=== PATIENT | female | born 1980 | race Caucasian/White ===

== ENCOUNTER 2016-12-29 11:58 | Emergency (ER) | payer OTHER ==
[~2016-12-29] VITALS: Ht 162.6 cm; Wt 65.0 kg
[~2016-12-29 11:58] MED LIST: IBUP800T25 PO
[2016-12-29 12:00] VITALS: Ht 162.6 cm; Wt 65.0 kg
[2016-12-29] MEDS ORDERED: BENZ100C70 PO (12:27)
[2016-12-29] MEDS ORDERED: AZIT250T94 PO (12:27)
[2016-12-29] MEDS ORDERED: LORA-186 PO (12:27)
[2016-12-29] MEDS ORDERED: ALBU8.5H3 INH (12:27)
--- NOTE | 2016-12-29 12:43 | ERD ---
ER Documentation Chief Complaint Date/Time DATE: 12/29/16 TIME: 12:28 Chief Complaint COUGH , RUNNY NOSE , CHILLS HPI This is a 36-year-old female presenting to the emergency department complaining of cough, runny nose and chills for the past 2 weeks. Patient states that she had a lot of phlegm this morning. She denies any current fevers. Denies taking any other medications today ROS All systems reviewed and are negative except as per history of present illness. Medications Home Meds Active Scripts Loratadine* (Claritin*) 10 Mg Tablet, 10 MG PO DAILY, #20 TAB Prov:NICOLE GIBBS PA-C 12/29/16 Benzonatate* (Tessalon Perle*) 100 Mg Capsule, 100 MG PO Q8H Y for COUGH, #20 CAP Prov:NICOLE GIBBS PA-C 12/29/16 Azithromycin* (Zithromax*) 250 Mg Tablet, 250 MG PO .ZPACK DIRECTED, #6 TAB TAKE 500 MG (2 TABS) THE FIRST DAY THEN 250 MG (1 TAB) DAYS 2-5 Prov:NICOLE GIBBS PA-C 12/29/16 Albuterol Sulfate* (Proair HFA*) 8.5 Gm Hfa.aer.ad, 2 PUFF INH Q4H Y for WHEEZING AND SOB, #1 INHALER Prov:NICOLE GIBBS PA-C 12/29/16 Ibuprofen* (Motrin*) 800 Mg Tab, 800 MG PO Q6, #30 TAB Prov:MANOJ LLOYD NP 04/26/15 Allergies Allergies: Coded Allergies: morphine (Verified Allergy, Unknown, 04/26/15) PMhx/Soc History of Surgery: Yes (csection) Hx Alcohol Use: No Hx Tobacco Use: No Physical Exam Vitals Vital Signs Date Time Temp Pulse Resp B/P Pulse Ox O2 Delivery O2 Flow Rate FiO2 12/29/16 12:00 98.1 85 18 157/79 98 Physical Exam Const: WDWN Head: Atraumatic Eyes: Normal Conjunctiva ENT: Normal External Ears, Nose and Mouth. Neck: Full range of motion..~ No meningismus. Resp: Course breath sounds bilaterally Cardio: Regular rate and rhythm, no murmurs Abd: Soft, non tender, non distended. Normal bowel sounds Skin: No petechiae or rashes Back: No midline or flank tenderness Ext: No cyanosis, or edema Neur: Awake and alert Psych: Normal Mood and Affect Procedures/MDM Is a 36-year-old female presenting to emergency department with signs and symptoms most consistent with a bronchitis, viral versus bacterial. Patient will be empirically treated with a Zithromax. There was no evidence of pneumonia, pleural effusion, respiratory distress, strep pharyngitis otitis media. Stable to be discharged home with prescriptions for Tessalon Perles Claritin and ProAir air Departure Diagnosis: Primary Impression: Bronchitis Condition: Stable Patient Instructions: Bronchitis, Antiobiotic Treatment (Adult), Bronchitis With Wheezing (Adult) Additional Instructions: FOLLOW UP WITH YOUR PRIMARY CARE PHYSICIAN TOMORROW.Return to this facility if you are not improving as expected. Take all medicines as directed. Return to this facility if you are not improving as expected. NICOLE GIBBS PA-C Dec 29, 2016 12:42
== END 2016-12-29 13:23 | disposition home or self-care (01) ==
LOC: FTE 11:58
DX: J20.9 Acute bronchitis, unspecified (principal)
CPT/HCPCS: 99284